=== PATIENT | male | born 1975 | race Caucasian/White ===

== ENCOUNTER → 2019-11-07 | Outpatient (CLI) | payer BC ==
[~2019-11-07] MED LIST: LORTAB 5/500 501 TAB PO; NO HOME MEDICATIONS
== END ==
LOC: ZCOL.LAB 17:23
DX: R05 Cough (principal); R52 Pain, unspecified; Z20.828 Contact with and (suspected) exposure to other viral communicable diseases

== ENCOUNTER 2022-01-16 07:39 | Day surgery (SDC) | payer BC ==
[~2022-01-16] VITALS: Ht 175.3 cm; Wt 120.9 kg
[2022-01-16 08:41] VITALS: BP 131/85; PULSE 65; TEMP 97.3
[2022-01-16 09:30] VITALS: BP 112/68; PULSE 80; TEMP 97.2
--- NOTE | 2022-01-16 09:30 | NUR ---
The patient arrived back to [facility] from the endoscopy suite at this time. The patient appears alert and oriented and ambulated from the cart to the recliner in his room and appeared to tolerte the acitivity well. Vital signs were started at this time. The patient's is at his bedside. The patient agrees to try some apple juice. Warm blanket provded. Denies any further orders.
[2022-01-16 09:45] VITALS: BP 101/72; PULSE 68
--- NOTE | 2022-01-16 09:45 | NUR ---
Dr. Ibarra is at the patient's bedside. Discussing the findings of the procedure.
[2022-01-16 10:00] VITALS: BP 113/55; PULSE 61
--- NOTE | 2022-01-16 10:00 | NUR ---
Discharge instructions were reviewed with the patient and his at this time. They both verbalized understanding and have no questions for the nurse at this time. The patient's IV was removed and a pressure dressing was applied to the site. The nurse insutructed the patient to get dressed and notify the staff when he is ready to be escorted out.
--- NOTE | 2022-01-16 10:06 | NUR ---
The patient was escorted out via wheelchair to a private vehicle by KATELYN Spivey. The patient's belongings and discharge paperwork were sent him. The patient's is present to drive him home.
[2022-01-16 10:10] VITALS: BP 115/85; PULSE 75
== END 2022-01-16 10:06 | disposition home or self-care (01) ==
LOC: SDCO 07:39
DX: Z12.11 Encounter for screening for malignant neoplasm of colon (principal); K63.5 Polyp of colon; F17.210 Nicotine dependence, cigarettes, uncomplicated
CPT/HCPCS: J2704; J7120